=== PATIENT | female | born 1945 | race African-American/Black ===

== ENCOUNTER 2018-04-08 17:18 | Emergency (ER) | payer MEDICARE, MEDICAID ==
[~2018-04-08] VITALS: Ht 167.6 cm; Wt 102.0 kg
[2018-04-08] MEDS ORDERED: IBUPROFEN 800MG TABLET PO ONE (18:00)
[2018-04-08] MEDS ORDERED: TETANUS, DIPHTHERIA, PERTUSSIS VAC/PF 0.5ML (>7YR OLD) IM ONE (22:45)
[2018-04-08] MEDS ORDERED: HYDROCODONE/ACETAMINOPHEN 5/325MG TABLET PO ONE (22:45)
[2018-04-09] MEDS ORDERED: BACITRACIN ZINC OINT UDPKT TOP ONE
[2018-04-09 00:51] VITALS: BP 140/72
== END 2018-04-09 00:52 | disposition home or self-care (01) ==
LOC: ER 17:18
DX: S83.91XA Sprain of unspecified site of right knee, initial encounter (principal); S80.211A Abrasion, right knee, initial encounter; Y93.89 Activity, other specified; V87.8XXA Person injured in other specified noncollision transport accidents involving motor vehicle (traffic), initial encounter; Y92.410 Unspecified street and highway as the place of occurrence of the external cause; J44.9 Chronic obstructive pulmonary disease, unspecified; F17.210 Nicotine dependence, cigarettes, uncomplicated; I11.9 Hypertensive heart disease without heart failure; Z23 Encounter for immunization
CPT/HCPCS: 73564; 90471; 90715; 99284; L1830

== ENCOUNTER 2023-12-16 15:26 | Emergency (ER) | payer MEDICARE, MEDICAID ==
[~2023-12-16] VITALS: Ht 160 cm; Wt 65.0 kg
[2023-12-16 15:45] VITALS: BP 108/48; PULSE 63; RESP 20; TEMP 98; O2SAT 97
[2023-12-16] MEDS ORDERED: NAPR-1129 MT (17:45)
[2023-12-16] MEDS ORDERED: ACET-2708 MT (17:45)
[2023-12-16] MEDS ORDERED: ACYC200C31 MT (17:45)
== END 2023-12-16 18:19 | disposition home or self-care (01) ==
LOC: ER 15:26
DX: B02.9 Zoster without complications (principal); J44.9 Chronic obstructive pulmonary disease, unspecified; I10 Essential (primary) hypertension
CPT/HCPCS: 99283